=== PATIENT | female | born 1995 | race Caucasian/White ===

== ENCOUNTER 2022-03-19 05:31 | Emergency (ER) | payer OTHER ==
[2022-03-19 06:37] LABS: CORONAVIRUS 2019 SARS-COV-2 NEGATIVE (NEGATIVE); INFLUENZA A NAA NEGATIVE (NEGATIVE)
[2022-03-19] MEDS ORDERED: MEDROL 4MG DOSEP4 MG PO (07:24)
== END 2022-03-19 07:55 | disposition home or self-care (01) ==
LOC: FER 05:31
PROVIDERS: Emergency Medicine
DX: B34.9 Viral infection, unspecified (principal); F17.200 Nicotine dependence, unspecified, uncomplicated; Z20.822 Contact with and (suspected) exposure to COVID-19; Z28.310 Unvaccinated for COVID-19
CPT/HCPCS: 87880; J1100; U0002